=== PATIENT | female | born 1990 | race Caucasian/White ===

== ENCOUNTER 2016-10-17 19:00 | Inpatient (IN) | payer OTHER ==
--- NOTE | ~2016-10-17 | PN ---
Unit #: [id number] #: [id number] Patient: ASHLEY YING [id number] [facility] [address] [place] [address] [id number] MR#: [id number] NAME: ASHLEY YING ROOM: P209 Age: 25 Sex: F Admission Date: 10/18/2016 : 1990 Attending Physician: Halley Bright M.D. Admitting Physician: Halley Bright M.D. Primary Care Physician: Primary Care Physician Lynnette SARMIENTO NOTES DATE OF SERVICE 10/19/2016 DISCUSSION Ms. Ying is a 25-year-old white female who was seen today. Chart was reviewed and case was discussed with the staff. She remains anxious, withdrawn, depressed, and rather seclusive to herself, and does appear to be in some distress and discomfort. Meanwhile, she has been taking the medications and tolerating them fairly well. MENTAL STATUS EXAMINATION Young white female who is casually dressed with poor personal hygiene, appears to be in no acute distress or discomfort. She was awake and alert with intact orientation. Her mood is anxious with congruent affect. She denies any suicidal or homicidal ideations. Her insight and judgment remain slightly impaired. TREATMENT PLAN 1. We will continue her on her current medications and treatment protocol. We will monitor her response to the medications and make further adjustments as needed. 2. We will continue to follow up. Dictated by... Halley Bright M.D. IAA/bzg TD: 10/20/2016 09:46 JOB #: [id number] [facility] PROGRESS NOTES Page 1 of 1 X Halley Bright MD PROGRESS NOTE
--- NOTE | ~2016-10-17 | A ---
[facility] Nutrition Therapy DATE: 10/18/16 Patient: ASHLEY SKAGGS Physician: AFAIRF Address: [address] Room/Bed: [address], Zip: [place] [address] Admit Date: 10/18/16 Date of : [birth year] Height: 5 3 Weight: [phone] NUTRITIONAL ASSESSMENT: REASON: UNINTENTIONAL WEIGHT LOSS PATIENT ADMITTED FOR DETOX AND SI PMH: HEP C Anthropometrics: HT: 63", WT: 130#, BMI: 23 Labs: 10/18/16- GLU 114 Meds: DESYREL, DETOX PROTOCOL Assessment: PATIENT IS A 25 Y/O FEMALE AMDITTED FOR SI AND DETOX. PATIENT IS CURRENTLY UNEMPLOYED, HOMELESS, HAS BEEN PROSTITUTING, SMOKES 1 PPD, AND HAS BEEN ABUSING HEROIN, METH, COCAINE, XANAX, AND DIAZEPAM. PATIENT HAS A HX OF OUTPATIENT CHEMICAL DEPENDENCY TREATMENT. PER NEEDS ASSESSMENT PATIENT STATED A GOOD APPETITE WITH A 20# WEIGHT LOSS OVER LAST SEVERAL WEEKS, AND DIFFICULTY SLEEPING (AVERAGES 4HRS/NIGHT). THERE ARE NO SKIN OR GI ISSUES NOTED ATT. PATIENT'S BMI IS WITHIN A HEALTHY RANGE OF 19-25. PATIENT IS ON A REGULAR DIET WITH NO CAFFEINE. Dx: UNINTENTIONAL WEIGHT LOSS R/T CURRENT CONDITION, DETOX AEB SELF-REPORTED WEIGHT LOSS, NUTRITIONAL RISK POINT Intervention: REGULAR DIET, MEDS PER MD, DETOX, PSYCH Monitoring, Evaluation and Goals: 1. ADEQUATE PO INTAKES >50% OF MEALS 2. PREVENT, CORRECT MICRO/MACRO NUTRIENT DEFICIENCIES MONITOR: WEIGHTS, LABS, PO/FLUID INTAKES Recommendations: 1. CONTINUE REGULAR DIET WITH NO CAFFEINE TOLERATED 2. ENCOURAGE ADEQUATE PO AND FLUID INTAKES 3. IF PO INTAKES ARE BELOW 50% OF MEALS PLEASE ORDER ENSURE BID TO PROMOTE ADEQUATE KCAL AND PROTEIN INTAKES RD TO F/U PER PROTOCOL AND PRN R/T PATIENT MILDLY COMPROMISED [facility] Nutrition Therapy DATE: 10/18/16 Patient: ASHLEY SKAGGS Physician: TOBINF Address: [address] [facility] Room/Bed: [address], Zip: [place] [address] Admit Date: 10/18/16 Date of : [birth year] Height: 5 3 Weight: [phone] Respectfully, VOLODYMYR LUKE RD, LD [facility] cc: client file
--- NOTE | ~2016-10-17 | PN ---
Unit #: [id number] #: [id number] Patient: ASHLEY SKAGGS [id number] [facility] [address] [place] [address] [id number] MR#: [id number] NAME: ASHLEY SKAGGS ROOM: P209 Age: 25 Sex: F Admission Date: 10/18/2016 : 1990 Attending Physician: Halley Bright M.D. Admitting Physician: Halley Bright M.D. Primary Care Physician: Primary Care Physician Lynnette SARMIENTO NOTES DATE OF SERVICE 10/20/2016 DISCUSSION Ms. Skaggs is a 25-year-old white female with substance abuse and mood disorder who was seen today. Chart was reviewed and case was discussed with the staff. She has been anxious, withdrawn, and rather seclusive to herself. Meanwhile, she has been taking the medications and has been showing very poor insight into his situation and not investing very much into treatment. MENTAL STATUS EXAMINATION Young white female who is casually dressed with fair personal hygiene, appears to be in no acute distress or discomfort. She was awake and alert on interaction with intact orientation. Her mood is anxious with congruent affect. She denies any suicidal or homicidal ideations. Her insight and judgment remain slightly impaired. TREATMENT PLAN We will continue her on her current treatment protocol. We will monitor her response to the medications and make further adjustments as needed. Dictated by... Jonathan Leach/dahiana TD: 10/20/2016 13:06 JOB #: [id number] [facility] PROGRESS NOTES Page 1 of 1 X Halley Bright MD PROGRESS NOTE
--- NOTE | ~2016-10-17 | PA ---
Unit #: [id number] #: [id number] Patient: ASHLEY SKAGGS [id number] [facility]UD[facility] [address] [place] [address] [id number] MR#: [id number] NAME: ASHLEY SKAGGS ROOM: P209 Age: 25 Sex: F Admission Date: 10/18/2016 : 1990 Date of Assessment: 10/18/2016 Attending Physician: Halley Bright M.D. Admitting Physician: Halley Bright M.D. Primary Care Physician: Primary Care Physician No PSYCHIATRIC ASSESSMENT DATE OF SERVICE 10/18/2016. IDENTIFYING DATA Ms. Skaggs is a 25-year-old single white female, who is a resident of [place], [place], and was brought to the hospital, accompanied by her mother on a voluntary basis. 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 Skaggs is a 25-year-old white female with history of substance abuse and dependence, who was brought to the hospital reporting history of substance abuse and dependence, and "I sell my body for nothing, but dope. I overmedicate myself to hope I do not wake up." The patient reports taking 8 diazepam pills in the time span between 3 a.m. and 4 p.m. today in an attempt to overdose and she stated "every time I do a shot of heroin, I hope it's my last shot." The patient's mother stated "she just desperately needs help when she prays that every time she takes a shot that it kills her." The patient does report increasing depression, anxiety, irritability, feelings of hopelessness and helplessness, and suicidal ideations. SUBSTANCE ABUSE HISTORY The patient reports extensive history of substance abuse and dependence including alcohol, cannabis, cocaine, opioids, amphetamines, and benzodiazepines. Currently, opioids, particularly heroin has been her drug of choice as she reports that she has been using 1 to 2 g of IV heroin a day. PAST PSYCHIATRIC HISTORY The patient has had history of multiple inpatient psychiatric and chemical dependency treatments including [facility], and [facility], and review of the medical records indicated that currently she is not active in any treatment program, is not seeing a psychiatrist, and is not taking any psychotropic medications. PAST MEDICAL HISTORY Hepatitis C. ALLERGIES No known medication allergies. Unit #: [id number] #: [id number] Patient: ASHLEY SKAGGS CURRENT MEDICATIONS None. PERSONAL AND SOCIAL HISTORY A 25-year-old white female, who reports that she is single, unemployed, and homeless and has poor social support system. MENTAL STATUS EXAMINATION Young white female, who was casually dressed with fair personal hygiene, appears to be in no acute distress or discomfort. She was awake and alert on interaction with intact orientation to time, place, and person. Her mood was anxious and depressed with a congruent affect. Her speech was slow and restricted in content. She reports having suicidal ideations, but denies any homicidal ideations, and also denies any auditory or visual hallucinations. Her insight and judgment remain significantly impaired. DIAGNOSTIC IMPRESSION Psychiatric: Major depressive disorder, recurrent, moderate, without psychotic features; opioid dependence, moderate and acute withdrawals. Medical: None. Stressors: Moderate psychosocial stressors. TREATMENT PLAN 1. The patient has presented with history of mood disorder and substance abuse and has been decompensating and will need inpatient hospitalization for safety and stabilization. We will start her on detox protocol. We will closely monitor for any worsening withdrawal symptoms. 2. Supportive therapy was provided to the patient. 3. Safe, structured, and nourishing environment will be reported. ESTIMATED LENGTH OF STAY 5 to 7 days. ABILITY TO HELP SELF Limited. WILLINGNESS TO HELP SELF The patient appears to be willing to help self. STRENGTHS 1. Communicative. 2. Cooperative. PROBLEMS 1. Chronic dysphoric symptoms. 2. Chronic chemical dependency. 3. Poor social support system. DISCHARGE CRITERIA This will be contingent upon the patient's ability to show resolution of her depression and anxiety as well as her ability to stay safe to herself, particularly after discharge from the hospital. Dictated by... Halley Bright M.D. Unit #: [id number] #: [id number] Patient: ASHLEY SKAGGS IAA/modl TD: 10/18/2016 07:31 JOB #: [id number] PSYCHIATRIC ASSESSMENT Page 1 of 1 X Halley Bright MD X PSYCHIATRIC ASSESSMENT
--- NOTE | ~2016-10-17 | DS ---
Unit #: [id number] #: [id number] [facility]: [facility]GS [id number] [facility] [address] [place] [address] [id number] MR#: [id number] NAME: ASHLEY SKAGGS ROOM: [facility] Age: 25 Sex: F Admission Date: 10/18/2016 : 1990 Discharge Date: 10/20/2016 Attending Physician: Halley Bright M.D. Primary Care Physician: Primary Care Physician No DISCHARGE SUMMARY IDENTIFYING DATA Ms. Skaggs is a 25-year-old white female, who was self-referred to the hospital. DISCHARGE DIAGNOSES Psychiatric: Opioid dependence, moderate, in acute withdrawals; methamphetamine dependence, moderate; and opioid-induced mood disorder. Medical: Hepatitis C. stressors: Moderate psychosocial stressors. HISTORY OF PRESENT ILLNESS Please see initial psychiatric evaluation for details. PAST PSYCHIATRIC HISTORY Please see initial psychiatric evaluation for details. PAST MEDICAL HISTORY Please see initial psychiatric evaluation for details. HOSPITAL COURSE The patient was admitted to the adult chemical dependency unit at [facility] stewart Fernández and was oriented to the hospital environment. Routine p.r.n. medications were initiated and she was started on the opioid detox protocol and was closely monitored. She was taking the medications regularly and was tolerating them fairly well and was able to show a decent and therapeutic response and was willing to continue treatment on an outpatient basis and as such, it was decided that she will be discharged home and will continue treatment on an outpatient basis. DISCHARGE MEDICATIONS None. DISCHARGE CONDITION Stable. PROGNOSIS Guarded. Dictated by... Jonathan Leach/kendra Unit #: [id number] #: [id number] Patient: ASHLEY SKAGGS TD: 11/15/2016 12:38 JOB #: [id number] DISCHARGE SUMMARY Page 1 of 1 X Halley Bright MD X DISCHARGE SUMMARY
--- NOTE | ~2016-10-17 | HP ---
Unit #: [id number] #: [id number] Patient: LORIE SKAGGS [id number] [place] [address] [id number] MR#: [id number] NAME: LORIE SKAGGS ROOM: P184 Age: 25 Sex: F Admission Date: 10/18/2016 : 1990 Attending Physician: Halley Bright M.D. Admitting Physician: Halley Bright M.D. Primary Care Physician: Primary Care Physician No HISTORY AND PHYSICAL HISTORY OF PRESENT ILLNESS Lorie is a 25 year old admitted to [facility] because of her polysubstance abuse which includes IV meth, heroin and benzodiazepines. PAST MEDICAL HISTORY 1. Long history of polysubstance abuse to include IV drugs. 2. Hepatitis C. PAST SURGICAL HISTORY Nothing reported. ALLERGIES No known drug allergies. SOCIAL HISTORY Smokes 1 pack per day. Denies alcohol. Admits to a long history of polysubstance abuse to include IV drugs. FAMILY HISTORY Medically noncontributory. REVIEW OF SYSTEMS CONSTITUTIONAL: No fever or chills. HEENT: Denies any sore throat, ear pain or runny nose. CARDIOVASCULAR: Denies chest pain, irregular heart rhythm or palpitations. CHEST: Denies shortness of breath or cough. No hemoptysis. GASTROINTESTINAL: Denies nausea, vomiting, diarrhea or chronic constipation. ENDOCRINE: Denies history of increased thirst or urination. No recent significant weight loss or gain. GENITOURINARY: Denies dysuria, frequency, or hematuria. SKIN: Denies any rashes. HEMATOLOGIC: Denies history of increased bleeding or bruising. MUSCULOSKELETAL: Denies any hot, swollen joints. No generalized muscle pain. NEUROLOGIC: Denies problems with vision or speech. No frequent, severe headaches. No numbness, tingling or weakness in any extremities. Denies loss of bladder or bowel control. CURRENT MEDICATIONS Detox protocol. PHYSICAL EXAMINATION Unit #: [id number] #: [id number] Patient: LORIE SKAGGS GENERAL: Alert, well-nourished, in no apparent distress. VITAL SIGNS: Blood pressure 110/66, heart rate 70, respirations 16, temperature 98.6. WEIGHT: 130. HEIGHT: 5 feet 3 inches. SKIN: Warm and dry without rash or lesion. HEENT: Normocephalic. TMs not viewed. Oral and nasal passages clear. Conjunctivae clear. PERRLA. EOMs intact. NECK: Supple without lymphadenopathy or thyromegaly. HEART: Regular rate and rhythm without murmur. LUNGS: Clear. ABDOMEN: Soft, nontender. : Not done. EXTREMITIES: No evidence of cyanosis, clubbing or edema. Moves all without focal deficit. NEUROLOGICAL: Grossly within normal limits. Cranial Nerves: II: Visual quarles are intact. III, IV AND : Extraocular movements are intact. Pupils are equal, round and reactive to light. V: Facial sensation is grossly normal. VII: Facial movements and expression are normal. VIII: Auditory acuity grossly intact. IX, X: Uvula is midline. Phonation is normal. XI: Patient shrugs shoulders and turns head normally. XII: Tongue protrudes in the midline. Sensory and Motor Function: Sensory and motor sensation is grossly normal. Motor: moves all extremities well. Coordination: Gait is normal. Deep Tendon Reflexes: Intact. IMPRESSION Psychiatric admission. RECOMMENDATIONS PSYCHIATRIC: Per psychiatrist. MEDICAL: See no contraindications to participate in facility's activities. MEDICAL PROGNOSIS Good. MEDICAL CONDITION Stable. Dictated by... Miladys Woo PCuauhtemocACristo. for Jonathan Rodríguez/jayce TD: 10/18/2016 18:46 JOB #: [id number] Unit #: [id number] #: [id number] Patient: LORIE SKAGGS HISTORY AND PHYSICAL Page 1 of 1 X Miladys Woo X HISTORY AND PHYSICAL
[~2016-10-17 19:00] MED LIST: IBUPROFEN800 MG PO
[2016-10-18 09:44] LABS: BASOPHIL% 0.7 % (0-2.5); EOSINOPHIL# 0.4 X10e3 (0-0.7); EOSINOPHIL% 5.6 % (0.0-7.0); HEMATOCRIT 39.1 % (35.0-45.0); HEMOGLOBIN 12.7 gm/dL (12.0-16.0); LYMPHOCYTE% 46.8 % (17.0-45.0); MEAN CELL VOLUME 81.3 FL (83-96); MEAN CORPUSCULAR HEMOGLOBIN 26.5 PG (28-34); MEAN CORPUSCULAR HGB CONC 32.6 g/dL (30-36); MEAN PLATELET VOLUME 7.8 FL (6.5-11.5); MONOCYTE# 0.7 X10e3 (0-1.0); MONOCYTE% 10.4 % (3.0-12.0); NEUTROPHIL# 2.4 X10e3 (1.5-7.1); NEUTROPHIL% 36.5 % (40-75); PLATELET COUNT 369 X10e3 (140-420); RED BLOOD COUNT 4.81 X10e (3.90-5.30); RED CELL DISTRIBUTION WIDTH 15.8 % (11.0-15.5); WHITE BLOOD COUNT 6.5 X10e3 (4.0-10.5)
[2016-10-18 09:46] LABS: DIFF IND NO
[2016-10-18 10:07] LABS: ALBUMIN SERUM 3.5 g/dL (3.5-5.0); BILIRUBIN,TOTAL 0.3 mg/dL (0.2-2.0); BUN/CREATININE RATIO 14.28; CALCIUM SERUM 8.9 mg/dL (8.4-10.2); CREATININE SERUM 0.7 mg/dL (0.6-1.4); GLOM FILT RATE Estimated 119.6 mL/min (>60); POTASSIUM 3.9 mmol/L (3.5-5.1); PROTEIN TOTAL SERUM 6.4 g/dL (6.0-8.3)
[2016-10-19 09:53] LABS: URINE APPEARANCE TURBID; URINE BLOOD NEG (NEG); URINE COLOR DK YELLOW; URINE GLUCOSE NEG (NEG); URINE KETONE NEG (NEG); URINE LEUKOCYTE ESTERASE TRACE (NEG); URINE NITRATE NEG (NEG); URINE PH 8.5 (5-8); URINE PROTEIN TRACE (NEG); URINE SPECIFIC GRAVITY 1.024 (1.003-1.035)
[2016-10-19 09:58] LABS: URINE BACTERIA AUWI NEG (NEGATIVE); URINE SQUAMOUS EPITHELIAL CELL OCC /[HPF]
[2016-10-19 10:10] LABS: URINE BILIRUBIN NEG (NEG)
[2016-10-19 10:13] LABS: U HYALINE CASTS AUWI 0-2 /[LPF]; URINE CRYSTALS CALCIUM OXALATE /[HPF]; URINE MUCUS PRESENT
[2016-10-19 10:33] LABS: AMPHETAMINE POS (NEG); BARBITURATES NEG (NEG); BENZODIAZEPINES POS (NEG); COCAINE POS (NEG); MARIJUANA NEG (NEG); OPIATES NEG (NEG); TRICYCLIC ANTIDEPRESSANTS POS (NEG); U METHADONE NEG (NEG)
== END 2016-10-20 20:36 | disposition left against medical advice (07) | DRG 885 ==
LOC: P1E 10-18 03:43 → P2S 10-18 03:43
PROVIDERS: Psychiatry & Neurology Psychiatry
PROC: HZ2ZZZZ Detoxification Services for Substance Abuse Treatment (ICD-10-PCS; principal; 2016-10-18)
DX: F33.1 Major depressive disorder, recurrent, moderate (principal); F11.23 Opioid dependence with withdrawal; F17.210 Nicotine dependence, cigarettes, uncomplicated
CPT/HCPCS: 80053; 80307; 81003; 84703; 85025; 86592

== ENCOUNTER 2016-10-17 22:41 | Emergency (ER) | payer OTHER | END 2016-10-18 03:20 | disposition home or self-care (01) | LOC: CED 22:41 | DX: T42.4X2A Poisoning by benzodiazepines, intentional self-harm, initial encounter (principal); F17.200 Nicotine dependence, unspecified, uncomplicated | CPT/HCPCS: 99285 ==